=== PATIENT | male | born 1985 | race Caucasian/White ===

== ENCOUNTER 2021-05-16 16:05 | Emergency (ER) | payer OTHER ==
[~2021-05-16] VITALS: Ht 162.6 cm; Wt 66.2 kg
[2021-05-16] MEDS ORDERED: NAPROXEN375 MG PO (17:31)
[2021-05-16] MEDS ORDERED: ACETAMINOPHEN650 M2 (17:37)
== END 2021-05-16 17:57 | disposition home or self-care (01) ==
LOC: ER 16:05
DX: G56.01 Carpal tunnel syndrome, right upper limb (principal)